=== PATIENT | female | born 1980 | race Hispanic/Latino ===

== ENCOUNTER 2018-11-09 13:26 | Outpatient (CLI) | payer BC ==
--- NOTE | 2018-11-09 14:19 | RAD ---
FRONTAL VIEW CHEST: INDICATION: Chest pain, systemic lupus erythematosus. FINDINGS: There is mild interstitial prominence of the lungs. No consolidation, effusion, or pneumothorax. Ca rdiac silhouette is normal in size. IMPRESSION: No focal consolidation. POS: [facility]
== END 2018-11-09 13:27 | disposition home or self-care (01) ==
LOC: BICRAD 13:26
PROVIDERS: ATTEND Physician Assistant
DX: M32.10 Systemic lupus erythematosus, organ or system involvement unspecified (principal); R07.89 Other chest pain
CPT/HCPCS: 71045

== ENCOUNTER 2018-11-21 10:35 | Outpatient (CLI) | payer BC ==
--- NOTE | 2018-11-21 13:35 | RAD ---
CHEST TWO VIEWS: History: Chest pain. Dyspnea. FINDINGS: Cardiac silhouette and pulmonary vasculature are unremarkable. Mediastinum is midline. No confluent a irspace consolidation, pneumothorax or pleural fluid. IMPRESSION: No active cardiopulmonary abnormalities are demonstrated. POS: [facility]
--- NOTE | 2018-11-21 14:44 | NM ---
CT SCAN: HISTORY: Systemic lupus erythematosus, chest pain. TECHNIQUE: A ventilation perfusion scan was performed using 10.2 mCi Xenon 133 by inhalation for the ventilation study followed by the intravenous administration of 6.4 mCi technetium 99m-MAA for the perfusion sca n. FINDINGS: Homogeneous tracer distribution is seen in the lung bar bilaterally on ventilation perfusion scans without mismatched pleural-based wedge-shaped segmental or subsegmental perfusion defects. There is mild tracer retention on the washout phase of the ventilation scan. IMPRESSION: No evidence of pulmonary embolism. POS: [facility]
== END 2018-11-21 10:36 | disposition home or self-care (01) ==
LOC: NM 10:35
PROVIDERS: ATTEND Internal Medicine Rheumatology
DX: M32.10 Systemic lupus erythematosus, organ or system involvement unspecified (principal); D68.61 Antiphospholipid syndrome; R07.89 Other chest pain
CPT/HCPCS: 71046; 78582; A9540; A9558